=== PATIENT | female | born 1995 | race African-American/Black ===

== ENCOUNTER 2020-07-14 11:14 | Emergency (ER) | payer OTHER ==
[~2020-07-14] VITALS: Ht 160 cm; Wt 72.9 kg
[2020-07-14] MEDS ORDERED: NS 1,000 ML IV ONE (12:00)
[2020-07-14] MEDS ORDERED: METOCLOPRAMIDE INJ 10MG/2ML VIAL (J2765 PER 1) IV ONE (12:00)
[2020-07-14 12:38] LABS: BLOOD UREA NITROGEN 8 MG/DL (7-18); CALCIUM LEVEL 9.6 MG/DL (8.5-10.1); CARBON DIOXIDE LEVEL 29 MEQ/L (21-32); CHLORIDE LEVEL 105 MEQ/L (98-107); CREATININE FOR GFR 0.68 MG/DL (0.55-1.30); GLOMERULAR FILTRATION RATE > 60.0 (>60); GLUCOSE, FASTING 104 MG/DL (70-100); POTASSIUM SERUM 4.2 MEQ/L (3.5-5.1); SODIUM LEVEL 140 MEQ/L (136-145)
[2020-07-14 13:01] LABS: HCG, SERUM QUALITATIVE NEGATIVE (NEGATIVE)
[2020-07-14] MEDS ORDERED: ONDA4TAB6 PO (13:40)
[2020-07-14 14:04] VITALS: BP 124/82
== END 2020-07-14 14:11 | disposition home or self-care (01) ==
LOC: M ED 11:14
DX: K52.9 Noninfective gastroenteritis and colitis, unspecified (principal); Z88.8 Allergy status to other drugs, medicaments and biological substances
CPT/HCPCS: 36415; 80048; 84702; 84703; 96361; 96374; 99284; J2765

== ENCOUNTER 2021-09-28 18:34 | Emergency (ER) | payer OTHER ==
[~2021-09-28] VITALS: Ht 160 cm; Wt 80.3 kg
[~2021-09-28 18:34] MED LIST: ONDA4TAB6 PO
[2021-09-28 18:35] VITALS: BP 118/74
[2021-09-28] MEDS ORDERED: BUPR150T12 (18:44)
[2021-09-28] MEDS ORDERED: NAPR-885 (18:44)
--- OUTSIDE RECORDS SUMMARY | 2021-09-28 18:46 | CCD ---
Author Author [facility] Organization [facility] Address Unknown Phone Unavailable Care Team Providers Care Mapping Pilot Name Role Phone Kenniff, P Speedy RPA-C Unavailable Unavailable Kenniff, P Speedy RPA-C Unavailable Unavailable Kenniff, P Speedy RPA-C Unavailable Unavailable Kenniff, P Speedy RPA-C Unavailable Unavailable Kenniff, P Speedy RPA-C Unavailable Unavailable Kenniff, P Speedy RPA-C Unavailable Unavailable Kenniff, P Speedy RPA-C Unavailable Unavailable Kenniff, P Speedy RPA-C Unavailable Unavailable Kenniff, P Speedy RPA-C Unavailable Unavailable Kenniff, P Speedy RPA-C Unavailable Unavailable Kenniff, P Speedy RPA-C Unavailable Unavailable Kenniff, P Speedy RPA-C Unavailable Unavailable Kenniff, P Speedy RPA-C Unavailable Unavailable Kenniff, P Speedy RPA-C Unavailable Unavailable Kenniff, P Speedy RPA-C Unavailable Unavailable Kenniff, P Speedy RPA-C Unavailable Unavailable Kenniff, P Speedy RPA-C Unavailable Unavailable Kenniff, P Speedy RPA-C Unavailable Unavailable Kenniff, P Speedy RPA-C Unavailable Unavailable Kenniff, P Speedy RPA-C Unavailable Unavailable Kenniff, P Speedy RPA-C Unavailable Unavailable Kenniff, P Speedy RPA-C Unavailable Unavailable Kenniff, P Speedy RPA-C Unavailable Unavailable Kenniff, P Speedy RPA-C Unavailable Unavailable Re-disclosure Warning The records that you are about to access may contain information from federally-assisted alcohol or drug abuse programs. If such information is present, then the following federally mandated warning applies: This information has been disclosed to you from records protected by federal confidentiality rules (42 CFR part 2). The federal rules prohibit you from making any further disclosure of this information unless further disclosure is expressly permitted by the written consent of the person to whom it pertains or as otherwise permitted by 42 CFR part 2. A general authorization for the release of medical or other information is NOT sufficient for this purpose. The Federal rules restrict any use of the information to criminally investigate or prosecute any alcohol or drug abuse patient.The records that you are about to access may contain highly sensitive health information, the redisclosure of which is protected by Article 27-F of the [facility] Public Health law. If you continue you may have access to information: Regarding HIV / AIDS; Provided by facilities licensed or operated by the [facility] Office of Mental Health; or Provided by the [facility] Office for People With Developmental Disabilities. If such information is present, then the following [facility] mandated warning applies: This information has been disclosed to you from confidential records which are protected by state law. State law prohibits you from making any further disclosure of this information without the specific written consent of the person to whom it pertains, or as otherwise permitted by law. Any unauthorized further disclosure in violation of state law may result in a fine or senior care sentence or both. A general authorization for the release of medical or other information is NOT sufficient authorization for further disc losure. Allergies and Adverse Reactions Type Description Substance Reaction Status Data Source(s ) No Known Drug Allergies No Known Drug Allergies [facility] No Known Environmental Allergies No Known Environmental Al [facility] No Known Food Allergies No Known Food Allergies [facility] Encounters Encounter Providers Location Date Indications Data Source(s ) Outpatient Attender: Speedy Mcgovern RPA-C 0 07/20/2021 03:42:57 PM EDT - 07/21/2021 05:46:[address] [facility] Patient discharged. Immunizations Vaccine Date Status Description Data Source(s) COVID-19 VACCINE Moderna 03/30/2021 12:00:00 AM EDT completed [facility] Vaccine Series Complete: YESThis Data wa s Submitted to [facility] Via [employer]. COVID-19 VACCINE Moderna 03/02/2021 12:00:00 AM EDT completed WISIIS Vaccine Series Complete: NOThis Data was Submitted to [facility] Via [employer]. Medications Medication Brand Name Start Date Product Form Dose Route Admi nistrative Instructions Pharmacy Instructions Status Indications Reaction Description Data Source(s) Amoxicillin 875 MG / Clavulanate 125 MG Oral Tablet Am oxicillin/Clavulanate Potassium 04/10/2021 12:00:00 AM EDT ORAL active [facility] ([facility]) Insurance Providers Payer name Policy type / Coverage type Policy ID Covered democrat ID Covered democrat's relationship to dailey Policy Dailey Plan Information [facility] HUMANA - O/P [id number] 18 [id number] [facility] ACTIVE DUTY [id number] Problems, Conditions, and Diagnoses Code Display Name Description Problem Type Effective Dates Data Source(s) G4733 Obstructive sleep apnea (adult) (pediatr ic) Obstructive sleep apnea (adult) (pediatric) Diagnosis 07/20/2021 08:00:[address] [facility] Surgeries/Procedures No Information Results ID Date Data Source [id number] 07/15/2021 09:02:00 AM EDT [facility] Name Value Range Interpretation Code Description Data Donna rce(s) Supporting Document(s) SARS coronavirus 2 [facility] lab was ordered by [facility] and reported by [facility]. ID Date Data Source [id number] 04/10/2021 12:00:00 AM EDT [facility] Name Value Range Interpretation Code Description Data Donna rce(s) Supporting Document(s) SARS-CoV2 Rapid Antigen Negative [facility] This lab was reported by [facility]. Procedure Social History Code Duration Value Status Description Data Source(s ) Smoking 04/10/2021 12:00:00 AM EDT Patient has never smoked co mpleted Patient has never smoked [facility] ([facility]) Vital Signs ID Date Data Source UNK Name Value Range Interpretation Code Description Data Source(s) Systolic blood pressure 116 mm[Hg] 116 mm[Hg] M [facility]ENT ([facility]) Diastolic blood pressure 81 mm[Hg] 81 mm[Hg] [facility] ([facility]) Heart rate 73 /min 73 /min [facility] ([facility]) Respiratory rate 16 /min 16 /min [facility] ( [facility]) Oxygen saturation in Arterial blood by Pulse oximetry 98 % 98 % [facility] ([facility], [facility]) Body temperature 97.5 [degF] 97.5 [degF] [facility] ([facility], [facility]) Body weight 170.00 [lb_av] 170.00 [lb_av] [facility] ([facility], [facility]) Body height 63 [in_i] 63 [in_i] [facility] ([facility]) 5'3" Body mass index (BMI) [Ratio] 30.1 kg/m2 30.1 k g/m2 [facility] ([facility])
--- OUTSIDE RECORDS SUMMARY | 2021-09-28 18:46 | CCD | Continuity of Care Document ---
Author Author Business Continuity Director, [facility] Organization Unknown Address Unknown Phone Unavailable Care Team Providers Care Mallet Cutter Name Role Phone Speedy Mcmanus Unavailable Unavailable Problems No Problem Information Available Allergies and Adverse Reactions No Allergy Information Available Medications No Medication Information Available Social History No Social History Information Available Tobacco smoking consumption unknown Female Results No Known Results No Result Information Available Vital Signs No Vital Observation Information Available Advance Directives HIPAA - Patient specified Unknown. Payers [facility] Group Number: [address] [facility] [address] tel: Ginger [employer] [address] [place] [address] [facility] [address] tel:
[2021-09-28 22:57] LABS: GC DNA AMPLIFICATION NEGATIVE (NEGATIVE)
[2021-09-28] MEDS ORDERED: DOXYCYCLINE HYCLATE 100MG TABLET PO ONE (23:55)
[2021-09-28] MEDS ORDERED: DOXY-443 PO (23:57)
--- OUTSIDE RECORDS SUMMARY | 2021-09-29 00:55 | CCD ---
Author Author [facility] Organization [facility] Address Unknown Phone Unavailable Care Team Providers Care Roping Machine Tender Name Role Phone Kenniff, P Speedy RPA-C [...] is protected by Article 27-F of the [facility] Public Health law. If you continue you may have access to information: Regarding HIV / AIDS; Provided by facilities licensed or operated by the [facility] Office of Mental Health; or Provided by the [facility] Office for People With Developmental Disabilities. If such information is present, then the following [facility] mandated warning applies: This information has been [...] law may result in a fine or halfway sentence or both. A general authorization for the release of medical or other information is NOT sufficient authorization for further disc losure. Allergies and Adverse Reactions Type Description Substance Reaction Status Data Source(s ) No Known Drug Allergies No Known Drug Allergies [facility] No Known Environmental Allergies No Known Environmental Al [facility] No Known Food Allergies No Known Food Allergies [facility] Encounters Encounter Providers Location Date Indications Data Source(s ) Outpatient Attender: Speedy Mcgovern RPA-C 0 07/20/2021 03:42:57 PM EDT - 07/21/2021 05:46:00 AM EDT [facility] Patient discharged. Immunizations Vaccine Date Status Description Data Source(s) COVID-19 VACCINE Moderna 03/30/2021 12:00:00 AM EDT completed [facility] Vaccine Series Complete: YESThis Data wa s Submitted to [facility] Via [employer]. COVID-19 VACCINE Moderna 03/02/2021 12:00:00 AM EDT completed [facility] Vaccine Series Complete: NOThis Data was Submitted to [facility] Via [employer]. Medications Medication Brand Name Start Date Product Form Dose Route Admi nistrative Instructions Pharmacy Instructions Status Indications Reaction Description Data Source(s) Amoxicillin 875 MG / Clavulanate 125 MG Oral Tablet Am oxicillin/Clavulanate Potassium 04/10/2021 12:00:00 AM EDT ORAL active [facility] ([facility]) Insurance Providers Payer name Policy type / Coverage type Policy ID Covered libertarian ID Covered libertarian's relationship to dailey Policy Dailey Plan Information [facility] ACTIVE DUTY [id number] SP [id number] [facility] HUMANA - O/P [id number] 18 [id number] Problems, Conditions, and Diagnoses Code Display Name Description Problem Type Effective Dates Data Source(s) G4733 Obstructive sleep apnea (adult) (pediatr ic) Obstructive sleep apnea (adult) (pediatric) Diagnosis 07/20/2021 08:00:00 PM EDT [facility] Surgeries/Procedures No Information Results ID Date Data Source [id number] 07/15/2021 09:02:00 AM EDT [facility] Name Value Range Interpretation Code Description Data Donna rce(s) Supporting Document(s) SARS coronavirus [address] [facility] This lab was ordered by [facility] and reported by [facility]. ID Date Data Source [id number] 04/10/2021 12:00:00 AM EDT [facility] Name Value Range Interpretation Code Description Data Donna rce(s) Supporting Document(s) SARS-CoV2 Rapid Antigen Negative [facility] This lab was reported by [facility]. Procedure Social History Code Duration Value Status Description Data Source(s ) Smoking 04/10/2021 12:00:00 AM EDT Patient has never smoked co mpleted Patient has never smoked [facility] ([facility]) Vital Signs ID Date Data Source UNK Name Value Range Interpretation Code Description Data Source(s) Systolic blood pressure 116 mm[Hg] 116 mm[Hg] M [facility]ENT ([facility]) Diastolic blood pressure 81 mm[Hg] 81 mm[Hg] [facility] ([facility]) Heart rate 73 /min 73 /min [facility] ([facility]) Respiratory rate 16 /min 16 /min [facility] ( [facility]) Oxygen saturation in Arterial blood by Pulse oximetry 98 % 98 % [facility] ([facility], [facility]) Body temperature 97.5 [degF] 97.5 [degF] [facility] ([facility], [facility]) Body weight 170.00 [lb_av] 170.00 [lb_av] [facility] ([facility], [facility]) Body height 63 [in_i] 63 [in_i] [facility] ([facility]) 5'3" Body mass index (BMI) [Ratio] 30.1 kg/m2 30.1 k g/m2 [facility] ([facility])
== END 2021-09-29 01:09 | disposition home or self-care (01) ==
LOC: M ED 18:34
DX: A74.9 Chlamydial infection, unspecified (principal); Z79.899 Other long term (current) drug therapy; Z88.8 Allergy status to other drugs, medicaments and biological substances

== ENCOUNTER → 2021-10-28 | Outpatient (REF) ==
[~2021-10-28] MED LIST changes: +BUPR150T12; +DOXY-443 PO; +NAPR-885
--- NOTE | 2021-10-28 10:49 | REP ---
INDICATION: PAIN/SOB COMPARISON: None. TECHNIQUE: AP and lateral views left ankle. FINDINGS: Evidence for prior open reduction and fixation. No acute fracture or dislocation. Surrounding soft tissues are grossly normal although mild swelling overlying the medial and lateral malleolus cannot be excluded. Ankle mortise appears intact. IMPRESSION: Prior fixation. No acute fracture. Cannot exclude mild swelling. <Electronically signed by Supa Lord > 10/28/21 1043
--- NOTE | 2021-10-28 10:50 | REP ---
INDICATION: PAIN/SOB COMPARISON: None. TECHNIQUE: AP and lateral views of the right and left tibia/fibula FINDINGS: Left lower extremity demonstrates prior open reduction and fixation for distal fibular and tibial fractures. No acute fracture or dislocation. Right lower extremity demonstrates normal appearance of the tibia and fibula. IMPRESSION: No acute process. <Electronically signed by Supa Lord > 10/28/21 1046
--- NOTE | 2021-10-28 10:51 | REP ---
INDICATION: PAIN/SOB COMPARISON: None. TECHNIQUE: PA and lateral. FINDINGS: The mediastinum and cardiac silhouette are normal. The lung angel are clear and without acute consolidation, effusion, or pneumothorax. The skeletal structures are intact and normal. IMPRESSION: No acute cardiopulmonary process. <Electronically signed by Supa Lord > 10/28/21 1042
== END ==
LOC: M PLAIMG 10:04
PROVIDERS: ATTEND Internal Medicine
DX: R06.02 Shortness of breath (principal); M25.572 Pain in left ankle and joints of left foot; M25.59 Pain in other specified joint

== ENCOUNTER → 2021-11-11 | Outpatient (REF) | LOC: M LABSMTC 13:17 | PROVIDERS: ATTEND Pediatrics | DX: Z11.52 Encounter for screening for COVID-19 (principal) ==

== ENCOUNTER → 2021-11-24 | Outpatient (REF) | LOC: M PLAIMG 08:24 | PROVIDERS: ATTEND Internal Medicine | DX: R06.02 Shortness of breath (principal) ==

== ENCOUNTER 2022-01-11 21:22 | Emergency (ER) | payer OTHER ==
[~2022-01-11] VITALS: Ht 160 cm; Wt 77.3 kg
[2022-01-11 21:23] VITALS: BP 120/71
== END 2022-01-11 23:56 | disposition home or self-care (01) ==
LOC: M ED 21:22
DX: S70.01XA Contusion of right hip, initial encounter (principal); X58.XXXA Exposure to other specified factors, initial encounter; Y92.89 Other specified places as the place of occurrence of the external cause; G89.29 Other chronic pain; M25.551 Pain in right hip; Z88.8 Allergy status to other drugs, medicaments and biological substances

== ENCOUNTER 2022-06-22 14:41 | Emergency (ER) | payer OTHER, SELFPAY ==
[~2022-06-22] VITALS: Ht 160 cm; Wt 77.3 kg
[2022-06-22] MEDS ORDERED: MORPHINE 4 MG/ML 1ML VIAL/SYRINGE IV ONE ×2 (15:00→15:55)
[2022-06-22] MEDS ORDERED: GI COCKTAIL 50ML BTL(HYOSCYAMINE/MAALOX/LIDOCAINE VISCOUS)(1:3:1) PO ONE (15:00)
[2022-06-22] MEDS ORDERED: PANTOPRAZOLE 40MG VIAL IV ONE (15:00)
[2022-06-22 15:18] LABS: BASO % 0.5 % (0.0-1.0); EOS # 0.1 10^3/uL (0.0-0.5); EOS % 1.2 % (0.0-3.0); HEMATOCRIT 40.1 % (36.0-47.0); HEMOGLOBIN 12.6 g/dl (12.0-15.5); LYMPH # 2.1 10^3/uL (1.5-5.0); LYMPH % 51.6 % (24.0-44.0); MEAN CORPUSCULAR HEMOGLOBIN 28.4 pg (27.0-33.0); MEAN CORPUSCULAR HGB CONC 31.4 g/dl (32.0-36.5); MEAN CORPUSCULAR VOLUME 90.3 fl (80.0-96.0); MONO # 0.4 10^3/uL (0.0-0.8); NEUTROPHILS # 1.5 10^3/uL (1.5-8.5); NEUTROPHILS % 37.2 % (36.0-66.0); PLATELET COUNT, AUTOMATED 243 10^3/uL (150-450); RED BLOOD COUNT 4.44 10^6/uL (4.00-5.40)
[2022-06-22] MEDS ORDERED: PREN1TAB48 (15:24)
[2022-06-22 15:52] LABS: CK-MB VALUE MASS < 1.0 NG/ML (<3.6); CPK CREATINE PHOSPHOKINASE 257 U/L (26-192); MB/CK RELATIVE INDEX 0.39 (< OR =4)
[2022-06-22 16:00] LABS: ALBUMIN 3.8 GM/DL (3.2-5.2); ALT/SGPT 20 U/L (12-78); BILIRUBIN,DIRECT < 0.1 MG/DL (0.0-0.2); BILIRUBIN,TOTAL 0.3 MG/DL (0.2-1.0); BLOOD UREA NITROGEN 8 MG/DL (7-18); CALCIUM LEVEL 9.6 MG/DL (8.5-10.1); CARBON DIOXIDE LEVEL 28 MEQ/L (21-32); CHLORIDE LEVEL 107 MEQ/L (98-107); CREATININE FOR GFR 0.72 MG/DL (0.55-1.30); FREE T4 0.74 NG/DL (0.76-1.46); GLOMERULAR FILTRATION RATE > 60.0 (>60); GLUCOSE, FASTING 86 MG/DL (70-100); LIPASE 115 U/L (73-393); SODIUM LEVEL 138 MEQ/L (136-145); TOTAL PROTEIN 7.7 GM/DL (6.4-8.2)
[2022-06-22] MEDS ORDERED: ISOVUE-370 76% 100ML VIAL As Ordered ONE (16:38)
[2022-06-22 17:04] LABS: CK-MB VALUE MASS < 1.0 NG/ML (<3.6); CPK CREATINE PHOSPHOKINASE 231 U/L (26-192); MB/CK RELATIVE INDEX 0.43 (< OR =4)
[2022-06-22] MEDS ORDERED: PANT40TA29 PO (18:05)
[2022-06-22 18:31] VITALS: BP 112/75
== END 2022-06-22 18:43 | disposition home or self-care (01) ==
LOC: EDBD 14:41 → M ED 14:41
DX: R07.9 Chest pain, unspecified (principal)
CPT/HCPCS: 71046; 71275; 74175; 80048; 80076; 82550; 82553; 83690; 84439; 84443; 84484; 85025; 85379; 93005; 93041; 94760; 96374; 96375; 96376; 99285; C9113; J2270; Q9967

== ENCOUNTER 2022-06-24 07:23 | Emergency (ER) | payer OTHER, SELFPAY ==
[~2022-06-24] VITALS: Ht 160 cm; Wt 77.3 kg
[~2022-06-24 07:23] MED LIST changes: +PANT40TA29 PO; +PREN1TAB48
[2022-06-24] MEDS ORDERED: OMEP40CA4 PO (07:32)
[2022-06-24] MEDS ORDERED: SERT-141 PO (07:32)
[2022-06-24 08:28] LABS: BASO % 0.6 % (0.0-1.0); EOS # 0.1 10^3/uL (0.0-0.5); EOS % 1.7 % (0.0-3.0); HEMATOCRIT 38.8 % (36.0-47.0); HEMOGLOBIN 12.2 g/dl (12.0-15.5); LYMPH # 1.6 10^3/uL (1.5-5.0); LYMPH % 44.1 % (24.0-44.0); MEAN CORPUSCULAR HEMOGLOBIN 28.3 pg (27.0-33.0); MEAN CORPUSCULAR HGB CONC 31.4 g/dl (32.0-36.5); MONO # 0.4 10^3/uL (0.0-0.8); MONO % 10.1 % (2.0-8.0); NEUTROPHILS # 1.6 10^3/uL (1.5-8.5); NEUTROPHILS % 43.5 % (36.0-66.0); PLATELET COUNT, AUTOMATED 210 10^3/uL (150-450); RED BLOOD COUNT 4.31 10^6/uL (4.00-5.40); WHITE BLOOD COUNT 3.6 10^3/uL (4.0-10.0)
[2022-06-24 09:00] LABS: HCG, SERUM QUALITATIVE NEGATIVE (NEGATIVE)
[2022-06-24 09:06] LABS: ALBUMIN 3.7 GM/DL (3.2-5.2); ALT/SGPT 16 U/L (12-78); BILIRUBIN,DIRECT 0.2 MG/DL (0.0-0.2); BILIRUBIN,TOTAL 0.2 MG/DL (0.2-1.0); BLOOD UREA NITROGEN 11 MG/DL (7-18); CARBON DIOXIDE LEVEL 26 MEQ/L (21-32); CHLORIDE LEVEL 107 MEQ/L (98-107); CREATININE FOR GFR 0.74 MG/DL (0.55-1.30); GLOMERULAR FILTRATION RATE > 60.0 (>60); GLUCOSE, FASTING 87 MG/DL (70-100); LIPASE 125 U/L (73-393); POTASSIUM SERUM 4.3 MEQ/L (3.5-5.1); SODIUM LEVEL 137 MEQ/L (136-145); TOTAL PROTEIN 7.1 GM/DL (6.4-8.2)
[2022-06-24] MEDS ORDERED: KETOROLAC 30 MG/ML 1ML VIAL IV ONE (11:55)
[2022-06-24] MEDS ORDERED: ONDANSETRON 4MG 2ML VIAL IV ONE (11:55)
[2022-06-24] MEDS ORDERED: ISOVUE-370 76% 100ML VIAL As Ordered ONE (11:55)
[2022-06-24] MEDS ORDERED: DICYCLOMINE 10 MG CAP PO ONE (11:55)
[2022-06-24] MEDS ORDERED: MOM 30ML SUSPENSION UDC PO ONE (12:05)
[2022-06-24] MEDS ORDERED: DICY10CA13 PO (13:35)
[2022-06-24] MEDS ORDERED: CARA1TAB6 PO (13:35)
[2022-06-24] MEDS ORDERED: ONDA4TAB6 PO (13:35)
[2022-06-24] MEDS ORDERED: MILKSUS3 PO (13:37)
[2022-06-24 13:59] VITALS: BP 113/74
== END 2022-06-24 14:05 | disposition home or self-care (01) ==
LOC: M ED 07:23
DX: R10.9 Unspecified abdominal pain (principal); K21.9 Gastro-esophageal reflux disease without esophagitis; Z88.8 Allergy status to other drugs, medicaments and biological substances
CPT/HCPCS: 74021; 74177; 80048; 80076; 83690; 84703; 85025; 96374; 96375; 99284; J1885; J2405; Q9967